=== PATIENT | male | born 1970 | race Caucasian/White ===

== ENCOUNTER 2016-08-06 05:05 | Emergency (ER) | payer OTHER ==
--- NOTE | 2016-08-06 05:07 | PDOC ---
History of Present Illness - General Chief Complaint: Pain, Acute Stated Complaint: LLQ PAIN X 45 MINUTES Time Seen by Provider: 08/06/16 05:07 History Source: Patient Exam Limitations: No Limitations - History of Present Illness Initial Comments: 46 yo M no PMH presents with abrupt onset L side/LLQ pain approximately 4am this morning. He states that his son was sleeping next to him, knee was pushing into his side, so when he woke up with the pain, he attributed it to this. He moved away from his son, stretched his muscles, but the pain did not resolve on its own. He denied any N/V/D, fever, dysuria, urinary urgency. He states that after 40 minutes, he called a taxi to take him to the hospital, but upon the taxi's arrival, the pain quite suddenly disappeared. He is currently pain free, but still has an unusual sensation in the same area where the pain was. Past History - Past Medical History Allergies/Adverse Reactions: Allergies Allergy/AdvReac Type Severity Reaction Status Date / Time No Known Allergies Allergy Verified 08/06/16 05:06 Home Medications: Ambulatory Orders NK [No Known Home Medication] 08/06/16 Review of Systems - Review of Systems Able to Perform ROS?: Yes Comments:: GENERAL/CONSTITUTIONAL: No fever or chills. No weakness. HEAD, EYES, EARS, NOSE AND THROAT: No change in vision. No ear pain or discharge. No sore throat. CARDIOVASCULAR: No chest pain or shortness of breath. RESPIRATORY: No cough, wheezing, or hemoptysis. GASTROINTESTINAL: No nausea, vomiting, diarrhea or constipation. +Abd pain to L side and LLQ. GENITOURINARY: No dysuria, frequency, or change in urination. MUSCULOSKELETAL: No joint or muscle swelling or pain. No neck or back pain. SKIN: No rash NEUROLOGIC: No headache, vertigo, loss of consciousness, or change in strength/ sensation. ENDOCRINE: No increased thirst. No abnormal weight change. HEMATOLOGIC/LYMPHATIC: No anemia, easy bleeding, or history of blood clots. ALLERGIC/IMMUNOLOGIC: No hives or skin allergy. *Physical Exam - Physical Exam Comments: GENERAL: Awake, alert, and fully oriented, in no acute distress HEAD: No signs of trauma EYES: PERRLA, EOMI, sclera anicteric, conjunctiva clear ENT: Auricles normal inspection, hearing grossly normal, nares patent, oropharynx clear without exudates. Moist mucosa NECK: Normal ROM, supple, no lymphadenopathy, JVD, or masses LUNGS: Breath sounds equal, clear to auscultation bilaterally. No wheezes, and no crackles HEART: Regular rate and rhythm, normal S1 and S2, no murmurs, rubs or gallops ABDOMEN: Soft, nontender, normoactive bowel sounds. No guarding, no rebound. No masses. No CVAT. EXTREMITIES: Normal range of motion, no edema. No clubbing or cyanosis. No cords, erythema, or tenderness NEUROLOGICAL: Cranial nerves II through XII grossly intact. Normal speech, normal gait SKIN: Warm, Dry, normal turgor, no rashes or lesions noted. Medical Decision Making - Medical Decision Making 08/06/16 05:26 Based on patient's sudden appearance of pain followed by sudden disappearance, suspicion is high for kidney stone. He states that while he had the pain, he found it difficult to find a comfortable position. No associated GI symptoms. Currently pain free. Will send UA. Will monitor patient while the results are pending. If wnl and he has no further pain, will DC home. If pain returns, will obtain spiral CT. *DC/Admit/Observation/Transfer Diagnosis at time of Disposition: Flank pain - Discharge Dispostion Disposition: HOME Condition at time of disposition: Stable Admit: No - Patient Instructions Printed Discharge Instructions: DI for Flank Pain
[2016-08-06 05:17] VITALS: BP 131/88; PULSE 61; TEMP 98.2; BMI 21.9
[2016-08-06 06:09] LABS: PH,URINE 5.5 (5.0-8.0); URINE APPEARANCE CLEAR; URINE BILIRUBIN NEGATIVE (NEGATIVE); URINE COLOR LT. YELLOW; URINE GLUCOSE (UA) NEGATIVE (NEGATIVE); URINE KETONE NEGATIVE (NEGATIVE); URINE LEUK ESTERASE NEGATIVE (NEGATIVE); URINE NITRITE NEGATIVE (NEGATIVE); URINE PROTEIN NEGATIVE (NEGATIVE); URINE UROBILINOGEN 0.2 E.U/dl E.U./dl (0.2-1.0)
[2016-08-06 06:15] LABS: URINE BLOOD 3+ (NEGATIVE)
[2016-08-06 06:34] LABS: URINE MUCUS RARE; URINE RBC 72 /hpf (0-3); URINE WBC 1 /hpf (3-5)
== END 2016-08-06 06:33 | disposition home or self-care (01) ==
LOC: FER 05:05
DX: R10.9 Unspecified abdominal pain (principal)
CPT/HCPCS: 81003; 81015; 87086; 99281-25